=== PATIENT | male | born 1975 | race Two or more races ===

== ENCOUNTER 2018-07-04 06:31 | Day surgery (SDC) | payer BC ==
[2018-07-04] VITALS (9 sets, daily range): BP systolic 123–143; BP diastolic 73–85
[~2018-07-04] VITALS: Ht 180.3 cm; Wt 96.2 kg
[~2018-07-04 06:31] MED LIST: NKM
[2018-07-04] MEDS ORDERED: Acetaminophen (Non formulary) 100 ML IV ONE (07:45)
[2018-07-04] MEDS ORDERED: Hydromorphone 0.5mg/0.5ml inj IVP PRN (07:45)
[2018-07-04] MEDS ORDERED: fentaNYL 100 mcg/2 mL IV PRN (07:45)
[2018-07-04] MEDS ORDERED: Bupivacaine w/Epi 0.5% 30ml Vial INJ ONE (08:00)
[2018-07-04] MEDS ORDERED: Metoclopramide 10mg/2ml Inj ONE (08:00)
[2018-07-04] MEDS ORDERED: LR 1000ml ONE (08:00)
[2018-07-04] MEDS ORDERED: EPINEPHrine 1mg/1ml Amp ONE ×2 (08:00→08:35)
[2018-07-04] MEDS ORDERED: Ropivacaine 5mg/ml Vial 30ml INJ ONE ×2 (08:00→11:52)
[2018-07-04] MEDS ORDERED: Bupivacaine w/Epi 0.25% 30ml Vial INJ ONE (08:10)
[2018-07-04] MEDS ORDERED: Zemuron 50mg/5ml Inj IV ONE (08:10)
--- NOTE | 2018-07-04 08:29 | Pre-Procedure Note/Attestation ---
Pre-Procedure Note/Attestation Complete Prior to Procedure Planned Procedure: left Procedure Narrative: Left shoulder revision arthroscopy with rotator cuff repair and decompression Attestation I attest that I discussed the nature of the procedure; its benefits; risks and complications; and alternatives (and the risks and benefits of such alternatives ), prior to the procedure, with the patient (or the patient's legal sales and marketing representative). I attest that, if there was a reasonable possibility of needing a blood transfusion, the patient (or the patient's legal sales and marketing representative) was given the [facility] standardized written summary, pursuant to the [place] Blood Safety Act ([place] Health and Safety Code # 1645, as amended). I attest that I re-evaluated the patient just prior to the surgery and that there has been no change in the patient's H&P, except as documented below: Jigar Sanchez MD Jul 04, 2018 08:29
[2018-07-04] MEDS ORDERED: Midazolam 2mg/2ml Inj ONE ×2 (08:35→08:48)
[2018-07-04] MEDS ORDERED: fentaNYL 100 mcg/2 mL IV ONE ×2 (08:35→11:04)
[2018-07-04] MEDS ORDERED: NS Irrig 4000ml IRRIG ONE ×2 (09:28→11:27)
[2018-07-04] MEDS ORDERED: EPINEPHrine 1mg/1ml Amp IV ONE (11:28)
[2018-07-04] MEDS ORDERED: Phenylephrine 10mg/ml Vial ONE (11:50)
[2018-07-04] MEDS ORDERED: Ketorolac 30mg Inj ONE (11:50)
--- NOTE | 2018-07-04 12:21 | Immediate Post-Op Evaluation ---
Immediate Post-Op Evalulation Immediate Post-Op Evalulation Procedure: left rotator cuff repair Date of Evaluation: Jul 04, 2018 Time of Evaluation: 12:10 IV Fluids: 1000 Blood Pressure Systolic: 125 Blood Pressure Diastolic: 85 Pulse Rate: 81 Respiratory Rate: 14 O2 Sat by Pulse Oximetry: 98 Temperature (Fahrenheit): 97.5 Pain Score (1-10): 0 Nausea: No Vomiting: No Complications none Patient Status: awake, reacts, patent Hydration Status: adequate Drug: ancef Given Within 1 Hr of Incision: Yes Time Given: 09:00 Renée Chambers CRNA Jul 04, 2018 12:21
--- NOTE | 2018-07-04 12:23 | Anethesia Preoperative Eval ---
Anesthesia Pre-op PMH/ROS General Date of Evaluation: Jul 04, 2018 Time of Evaluation: 08:20 Anesthesiologist: lida ASA Score: ASA 1 Mallampati Score Class I : Soft palate, uvula, fauces, pillars visible Class II: Soft palate, uvula, fauces visible Class III: Soft palate, base of uvula visible Class IV: Only hard plate visible Mallampati Classification: Class II Surgeon: allyn Diagnosis: rotator cuff tear Surgical Procedure: revision of rotator cuff Anesthesia History: none Family History: no anesthesia problems Allergies: Coded Allergies: No Known Allergies (Unverified , 07/04/18) Medications: see eMAR Patient NPO?: Yes NPO Date: Jul 03, 2018 NPO Time: 23:59 Past Medical History Cardiovascular: Denies: HTN, CAD, NM, valve dz, arrhythmia, other Pulmonary: Denies: asthma, COPD, JEREMIAH, other Gastrointestinal/Genitourinary: Denies: GERD, CRI, ESRD, other Neurologic/Psychiatric: Denies: dementia, CVA, depression/anxiety, TIA, other Endocrine: Denies: DM, hypothyroidism, steroids, other HEENT: Denies: cataract (L), cataract (R), glaucoma, [place] (L), [place] (R), other Hematology/Immune: Denies: anemia, DVT, bleeding disorder, other Musculoskeletal/Integumentary: Reports: DJD; Denies: OA, RA, DDD, edema, other PSxH Narrative: left shoulder surgery Anesthesia Pre-op Phys. Exam Physician Exam Last Vital Signs Date Time Temp Pulse Resp B/P (MAP) Pulse Ox O2 Delivery O2 Flow Rate FiO2 07/04/18 07:17 98.3 66 18 127/81 98 Room Air 98.3 Constitutional: NAD Neurologic: CN 2-12 intact Cardiovascular: RRR Respiratory: CTA Gastrointestinal: S/NT/ND Airway Exam Mallampati Classification 2 Mallampati Score: Class II MO: full Neck: thick ROM: full Dentures: no upper, no lower Anesthesia Pre-op A/P Studies Pre-op Studies: EKG - sr Risk Assessment & Plan Plan: general Status Change Before Surgery: No Pre-Antibiotics Drug: ancef Given Within 1 Hr of Incision: Yes Time Given: 09:00 Renée Chambers CRNA Jul 04, 2018 12:23
--- NOTE | 2018-07-04 23:45 | Operative Note - Dictated ---
DATE OF OPERATION: 07/04/2018 SURGEON: Jigar Sanchez M.D. SUPERVISOR ENGRAVING: None. ANESTHESIA: General plus regional plus local. COMPLICATIONS: None. ANTIBIOTICS: Ancef. PREOPERATIVE DIAGNOSES: 1. LEFT SHOULDER: 1.1. Recurrent rotator cuff tear, supraspinatus tendon, status post rotator cuff repair. 2. Subacromial tendinitis/bursitis. POSTOPERATIVE DIAGNOSES: 1. LEFT SHOULDER: 1.1. Recurrent rotator cuff tear, supraspinatus tendon, status post rotator cuff repair. 2. Subacromial tendinitis/bursitis. 3. 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 4. Anterolateral acromial bone spur. PROCEDURES PERFORMED: 1. LEFT SHOULDER ARTHROSCOPY WITH: 2. Subacromial bursectomy/decompression. 3. Revision arthroscopically assisted rotator cuff tear using FiberWire and double loaded Bio-inert 5.5 mm anchor with a single 5.5 mm second row fixation. 4. Humeral head debridement. 5. Acromioplasty of the anterolateral bone spur. BACKGROUND: The patient underwent rotator cuff repair surgery years ago. He did quite well until recent injury. An MRI confirmed the diagnosis, which was consistent with his symptoms. All risks, benefits, and alternatives to revision surgical intervention were discussed in great detail. Risks included, but were not limited to, bleeding, infection, neurovascular injury, need for additional surgical intervention, failure of pain relief, arthrofibrosis, complications of anesthesia, blood clots, stroke, heart attack, potentially . He understood these risks, amongst others, and consent was signed. PROCEDURE: The patient was brought into the operating room, placed supine on the operating table. He was placed into a beach chair position with all bony prominences appropriately padded. The left shoulder was correctly verified for surgical site and prepped and draped in standard sterile fashion. Examination under anesthesia revealed symmetric range of motion to the contralateral side. Regional anesthetic was induced and 2 grams Ancef administered. Posterior, lateral, and anterior portals were marked and care was taken to avoid the previous open scar to avoid any subcutaneous scar tissue. The portals were injected with 20 mL of 0.25% Marcaine with epinephrine as well as the subacromial space. The joint was insufflated with 30 mL of normal saline and a diagnostic arthroscopy was then undertaken. It revealed the followin. Normal biceps. 2. Normal biceps attachment. 3. Normal superior, anterior, inferior, and posterior labrum. 4. Grade 3, 2 cm x 1 cm humeral head chondrosis. 5. Normal glenoid. 6. Normal axillary pouch. 7. Shaped supraspinatus tendon. 8. Normal subscapularis attachment. 9. Abundant subacromial bursitis. 10. Anterolateral acromial bone spur. In the intra-articular space, a shaver was used to debride the loose edges of the chondrosis noted on the humeral head. All fluid and debris were evacuated from the intra-articular space and attention was turned to the subacromial space. In the subacromial space, an extensive bursectomy was performed from the recurrent bursitis and tendonitis. A crescent-shaped anterior supraspinatus tear was identified and the previous anterior anchor and its sutures were all located by virtue of sutures. The sutures were removed since the tissue had torn away from them. The edge of the crescent-shaped tear was debrided using a meniscal biter and a [id number] repair was undertaken with FiberWire. After the crescent had been changed into a linear configuration, it was then pulled laterally to its normal footprint after preparing the bone bed by making it bleed. Once the implant was secured into position, suture passer was then used to pass the suture through the rotator cuff. Under direct visualization, the rotator cuff was repaired. All three twin tails of the sutures were brought into the second row fixation for excellent security of the repair. To allow full range of motion, the repair remained intact and in its anatomic footprint. Acromionizer was used to perform an acromioplasty and all fluid and debris were evacuated from the subacromial space. A 10 mL of Duramorph was injected. The wounds were copiously irrigated and reapproximated using 4-0 Monocryl in subcuticular fashion. Steri-Strips were used over Mastisol. Dry sterile dressing was applied. A sling was fitted. He tolerated the procedures well. There were no complications. I attest I performed the entire operation. He was transferred to recovery in good condition. Jigar Sanchez M.D. DR: Brad JOB#: [id number] CC:
[2018-07-05 21:55] VITALS: BP 143/85
--- NOTE | 2018-07-05 21:55 | 48 Hour Post Anesthesia Eval ---
Post Anesthesia Evaluation Procedure: left rotator cuff repair Date of Evaluation: Jul 05, 2018 Time of Evaluation: 21:55 Blood Pressure Systolic: 143 0: 85 Pulse Rate: 73 Respiratory Rate: 14 O2 Sat by Pulse Oximetry: 98 Airway: patent Nausea: No Vomiting: No If pain is > 6 Comment: 0 Hydration Status: adequate Cardiopulmonary Status: stable Mental Status/LOC: patient returned to baseline Follow-up Care/Observations: na Post-Anesthesia Complications: none Follow-up care needed: N/A Renée Chambers CRNA Jul 05, 2018 21:55
== END 2018-07-04 14:05 | disposition home or self-care (01) ==
LOC: SUR 06:31
DX: M75.102 Unspecified rotator cuff tear or rupture of left shoulder, not specified as traumatic (principal); M75.52 Bursitis of left shoulder; M75.92 Shoulder lesion, unspecified, left shoulder; M94.8X1 Other specified disorders of cartilage, shoulder; M19.90 Unspecified osteoarthritis, unspecified site
CPT/HCPCS: 29826; 29827; J0171; J1885; J2250; J2370; J2405; J2765; J2795; J3010